=== PATIENT | male | born 1970 | race Caucasian/White ===

== ENCOUNTER 2022-07-07 16:00 | Outpatient (RCR) | payer OTHER, SELFPAY | END 2022-07-14 12:14 | disposition home or self-care (01) | PROVIDERS: PCP Family Medicine; Visit Provider Surgery | DX: R29.898 Other symptoms and signs involving the musculoskeletal system (principal); Z51.89 Encounter for other specified aftercare | CPT/HCPCS: 97110; 97140; 97162 ==

== ENCOUNTER 2025-01-26 08:23 | Emergency (ER) | payer OTHER, SELFPAY ==
[2025-01-26 08:29] VITALS: BP 145/88; PULSE 72; RESP 18; TEMP 36.9; O2SAT 99; BMI 28.4
--- NOTE | 2025-01-26 08:54 | CRLHL7_ITS ---
For Patients: As a result of the Century Cures Act, medical imaging exams and procedure reports are released immediately into your electronic medical record. You may view this report before your referring provider. If you have questions, please contact your health care provider. INDICATION: Chest pain TECHNIQUE: Chest 1 view. COMPARISON: None FINDINGS: Cardiovascular and mediastinum: Heart size and vasculature are normal in caliber and appearance. Mediastinum is within normal limits. Lungs and pleural space: Lungs are clear. No sign of infiltrate or mass. No sign of pleural effusion. No pneumothorax. Bones and soft tissues: No significant findings. IMPRESSION: Unremarkable chest. Dictated by: Baltazar Warner MD @ 01/26/2025 09:57:31 (Electronically Signed)
--- NOTE | 2025-01-26 08:55 | ED.CHESTPAIN ---
HPI - Chest Pain General Chief Complaint: Chest Pain Stated Complaint: chest pain Time Seen by Provider: 01/26/25 08:49 History of Present Illness HPI narrative: Patient is a 54-year-old gentleman who comes in today with intermittent chest pain for last week. 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 He was having reproducible chest pain over the last week but today is having pain without any activity. The pain is in the sternum with no radiation. No fevers no chills no night sweats no cough no shortness of breath. Patient is otherwise feeling fine. No previous history of cardiac disease but does have hyperlipidemia. Related Data Home Medications ?Medication ?Instructions ?Recorded ?Confirmed No Known Home Medications 01/26/25 01/26/25 Allergies Allergy/AdvReac Type Severity Reaction Status Date / Time No Known Drug Allergies Allergy Verified 01/26/25 08:34 Review of Systems Status of ROS Reports: 10 or more systems reviewed and unremarkable except as noted in History and below Exam Const Vital Signs, click to edit/add: Vital Signs - 24 hr 01/26/25 08:29 Temperature 98.4 F Pulse Rate [Right Pulse Oximeter] 72 Respiratory Rate 18 Blood Pressure [Right Upper Arm] 145/88 H Pulse Oximetry 99 Oxygen Delivery Method Room Air Course Vital Signs Vital signs: Initial Vital Signs Temperature 98.4 F 01/26/25 08:29 Temperature Source Temporal Artery Scan 01/26/25 08:29 Pulse Rate 72 01/26/25 08:29 Pulse Rhythm Regular 01/26/25 08:29 Pulse Strength 3+ Normal 01/26/25 08:29 Respiratory Rate 18 01/26/25 08:29 Blood Pressure 145/88 H 01/26/25 08:29 Blood Pressure Mean 107 H 01/26/25 08:29 Blood Pressure Position Sitting 01/26/25 08:29 Pulse Oximetry 99 01/26/25 08:29 Oxygen Delivery Method Room Air 01/26/25 08:29 Vital Signs Temperature 98.4 F 01/26/25 08:29 Pulse Rate 72 01/26/25 08:29 Respiratory Rate 18 01/26/25 08:29 Blood Pressure 145/88 H 01/26/25 08:29 Pulse Oximetry 99 01/26/25 08:29 Oxygen Delivery Method Room Air 01/26/25 08:29 Temperature 98.4 F 01/26/25 08:29 Pulse Rate 72 01/26/25 08:29 Respiratory Rate 18 01/26/25 08:29 Blood Pressure 145/88 H 01/26/25 08:29 Pulse Oximetry 99 01/26/25 08:29 Oxygen Delivery Method Room Air 01/26/25 08:29 MDM - Chest Pain MDM Narrative Medical decision making narrative: Patient presents with chest pain last week duration. EKG shows normal sinus rhythm without acute ST or T-wave changes no Q-waves. Troponin is negative D-dimer negative laboratory studies in general including CBC and comprehensive metabolic panel are normal. Chest x-ray negative upon my review. This time I did offer reassurance. He will contact his doctor tomorrow schedule stress echocardiogram. He will return if symptoms worsen. Lab Data Labs: Lab Results 01/26/25 Range/Units 09:05 WBC 5.72 (4.50-11.00) K/uL RBC 4.99 (4.30-5.90) m/uL Hgb 15.1 (13.5-17.5) gm/dL Hct 44.5 (37.0-53.0) % MCV 89 (80-100) fL MCH 30 (26-34) pg MCHC 34 (32-36) gm/dL RDW Coeff of Frances 13.0 (11.5-15.5) % Plt Count 284 (140-440) K/uL Neut % (Auto) 54.5 (42.0-72.0) % Lymph % (Auto) 29.4 (20-44) % [place] % (Auto) 13.3 H (0.0-11.0) % Eos % (Auto) 2.3 (0.0-7.0) % Baso % (Auto) 0.3 (0.0-3.0) % Neut # (Auto) 3.12 (1.7-7.0) K/uL Lymph # (Auto) 1.68 (0.90-2.90) K/uL [place] # (Auto) 0.80 (0.00-0.90) K/UL Eos # (Auto) 0.13 (0.00-0.50) K/uL Baso # (Auto) 0.02 (0.00-0.30) K/uL Abs Immat Gran (auto) 0.01 (0.00-0.30) K/uL Imm/Tot Granulo (auto) 0.2 % D-Dimer Quant (PE/DVT) < 0.27 (0.00-0.50) ug/ml Sodium 136 (135-149) mmol/L Potassium 4.1 (3.6-5.1) mmol/L Chloride 104 (96-114) mmol/L Carbon Dioxide 26 (20-32) mmol/L Anion Gap 6 L (7-15) mEq/L BUN 17 (7-30) mg/dL Creatinine 0.9 (0.5-1.5) mg/dL Estimated Creat Clear 107.27 Estimated GFR 102 ml/min Glucose 102 (60-115) mg/dL Calcium 9.4 (8.4-10.6) mg/dL Total Bilirubin 0.7 (0.1-1.5) mg/dL AST 41 H (12-35) U/L ALT 35 (4-50) U/L Alkaline Phosphatase 79 (40-150) U/L Troponin I < 0.01 (0.01-0.04) ng/mL Total Protein 7.7 (6.0-8.3) g/dL Albumin 4.4 (3.3-5.0) g/dL Discharge Plan Discharge Clinical Impression: Chest pain Patient Disposition: Home, Self-Care Condition: Stable Instructions: Chest Pain (ED) Additional Instructions: Continue current diet and activity Contact your doctor tomorrow to discuss a stress test. Activity Level: No Restrictions Discharge Diet: Regular Prescriptions: No Action No Known Home Medications Follow Up/Referrals: Gary Shine MD [Referring, Family Practice] Stand Alone Forms: [employer] Info Instructions
--- OUTSIDE RECORDS SUMMARY | 2025-01-26 09:02 | XMS_ITS | Clinical Summary ---
Author Organization [facility] Address [address] [place] [id number] Care Team Providers Care Chimney Mechanic Name Role Phone Anson Green MD Primary Care Provider [phone] Allergies Active Allergy Reactions Criticality Noted Date Comments Unlisted Allergen (Include D etail In Comments) Runny Nose 11/20/2020 Hayfever Medications cetirizine (ZYRTEC) 10 mg tablet Take 1 tablet by mouth once daily. 0 0 Active tiZANidine (ZANAFLEX) 4 mg tabletIndication s:Acute midline low back pain without sciatica Take 1 Tablet (4 mg) by mouth every 6 hours if needed for Muscle Spasm. 10 Tablet 3 Active predniSONE (DELTASONE) 20 mg tabletIndication s:Pruritic rash 2 tab x 3 days, 1 tab x 3 days, 0.5 tab x 4 days 11 Tablet 4 Active sildenafiL, pulm.hypertensio n, (REVATIO) 20 mg tabletIndication s:Erectile dysfunction, unspecified erectile dysfunction type TAKE 2-5 TABLETS BY MOUTH 30 MINUTES PRIOR TO SEXUAL INTERCOURSE. START AT LOWER DOSE AND INCREASE IF NEEDED. 50 Tablet 3 5 Active Active Problems Problem Noted Date Diagnosed Date Hyperplastic colon polyp 12/21/2015 Overview (12/21/2015): Colonoscopy 11/2015 polyp repeat in 10 years Family history of malignant neoplasm of prostate 07/30/2012 Allergic rhinitis, cause unspecified 06/22/2010 Immunizations Immunization Administration Dates Next Due AMB Influenza, (Flumist) Bharati e Intranasal,LAIV4 (Flu Clinic Only) 05/24/2013 AMB Influenza, IIV4 PF (=>6 mos Flulaval,Fluzone Fluarix)(Flu Clinic Only) 06/18/2014 COVID-19 VACCINE SPIKEVAX (M ODERNA 50MCG/0.5ML) 12YO+ PFS 08/07/2023 COVID-19 vaccine (Moderna 100mcg/0.5mL) PF, MDV 10/01/2020,09/03/2020 Hepatitis B, Unspecified 02/11/1997 Influenza, IIV3 (Age >=3 years) 08/07/19 13,09/07/2011,07/28/2010,2009 Influenza, IIV4 08/07/2023,,04/12/2019,2016,04/27/2016,08/14/2015 Td (Age >=7 Years) 02/27/2003 Tdap 01/11/2012 Family History Medical History Relation Name Comments Good Health Brother 6 Good Health Brother 7 Good Health Brother 8 Good Health Brother 9 Good Health Brother 10 Cancer-prostate Father Cancer Maternal Grandfather pancrea s Cancer-prostate Maternal Uncle Good Health Mother Cancer-prostate Paternal Grandfather Good Health Son 2 Relation Name Status Comments Brother 1 Alive Brother 2 Alive Brother 3 Alive Brother 4 Alive Brother 5 Alive Brother 6 Brother 7 Brother 8 Brother 9 Brother 10 Father Alive Maternal Grandfather Maternal Uncle Mother Alive Paternal Grandfather Son 1 Alive Son 2 Social History Tobacco Use Types Packs/Day Years Used Date Smoking Tobacco: Former Cigars Q uit: 07/31/2007 Smokeless Tobacco: Former Chew Quit: 07/31/2007 Tobacco Cessation:Counseling Given: Not Answered Alcohol Use Standard Drinks/Week Comments Yes 2 (1 standard drink = 0.6 oz pur e alcohol) occassional PHQ-2 Answer Date Recorded PHQ-2 TOTAL SCORE 0 08/07/2023 Social Connections Answer Date Recorded Do you often feel lonely or isolated from those around you? 0 08/07/2023 Financial Resource Strain Answer Date R ecorded Difficulty of Paying Living Expenses 3 08/07/2023 Difficulty of Paying Living Expenses Not on file 08/07/2023 Food Insecurity Answer Date Recorded Do you worry your food will run out before you are able to buy more? 1 08/07/2023 Transportation Needs Answer Date Record ed Does lack of transportation keep you from medica l appointments? 1 08/07/2023 Does lack of transportation keep you from work, meetings or getting things that you need? 1 08/07/2023 Housing Stability Answer Date Recorded What is your housing situation today? 1 08/07/2023 Utilities Answer Date Recorded Do you have trouble paying f or utilities (for example, heat, electricity, water, phone)? 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 Not on file Not on file Obstetrics History Last Filed Vital Signs Vital Sign Reading Time Taken Comments Blood Pressure 108/72 08/07/2023 3:13 PM BILLET HEATER OPERATOR Pulse 71 08/07/2023 3:13 PM BILLET HEATER OPERATOR Temperature 36.4 C (97.6 F) 11/20/2020 10:16 AM CDT Respiratory Rate - - Oxygen Saturation 98% 08/07/2023 3:13 PM BILLET HEATER OPERATOR Inhaled Oxygen Concentration - - Weight 97.2 kg (214 lb 3.2 oz) 08/07/2023 3:13 P M BILLET HEATER OPERATOR Height 183.6 cm (6' 0.28) 08/07/2023 3:13 PM CS T Body Mass Index 28.82 08/07/2023 3:13 PM BILLET HEATER OPERATOR Plan of Treatment Health Maintenance Due Date Last Done Comments Hepatitis B series for 19+ ( 2 of 3 - 19+ 3-dose series) 03/11/1997 02/11/1997 Pneumococcal series for age 50+ (1 of 1 - PCV) 2021 Zoster (shingles) series for age 50+ (1 of 2) 2021 Tetanus booster 01/10/2022 01/11/2012, 02/27/2003 COVID-19 vaccine series ( season) 2024 08/07/2023, 10/01/2020, 09/03/2020 BMI (ht and wt on same day) for age 18+ 08/07/2024 08/07/2023, 03/29/2022, 11/20/2020, Additional history exists Depression screening for age 12+ 08/11/2024 08/11/2023, 08/07/2023, 11/20/2020, Additional history exists Influenza Vaccine (Season Ended) 2025 08/07/2023, 08/28/2020, 04/12/2019, Additional history exists Colonoscopy through age 75 12/17/2025 12/18/2015 Lipids for age 45-75 08/07/2028 08/07/2023, 03/29/2022, 09/23/2019, Additional history exists Tdap Completed 01/11/2012 Hepatitis C screening for ag e 18-79 Completed 03/29/2022 HIV for age 15-65 Completed 08/07/2023 Procedures Procedure Name Priority Date/Time Associated Diagnosis Comments ANTI HIV 1/2 Routine 08/07/2023 4:12 PM BILLET HEATER OPERATOR Screening for HIV (human immunodeficiency virus) LIPID PANEL Routine 08/07/2023 4:12 PM BILLET HEATER OPERATOR Screening, lipid ANTI HCV Routine 03/29/2022 9:06 AM CDT Need for hepatitis C screening test from Last 3 Months or Most Recently Relevant to Health Maintenance Results * ANTI HIV 1/2 [94857.0] (08/07/2023 4:12 PM BILLET HEATER OPERATOR) HIV-1/HIV-2 SCREEN Non-Reacti ve Non-Reacti ve 08/08/2023 3:20 PM BILLET HEATER OPERATOR [facility] Comment:HIV-1 p24 and HIV-1/ HIV-2 Ab Not Detected. Blood BLOOD SPECIMEN / Unknown Venipuncture / Unknown 08/07/2023 4:12 PM BILLET HEATER OPERATOR 08/07/2023 4:13 PM BILLET HEATER OPERATOR us Anson Green MD SEND OUTS Final Resu lt [facility] [address] [place] [address], * (ABNORMAL) LIPID PANEL (08/07/2023 4:12 PM BILLET HEATER OPERATOR) CHOLESTEROL,TOTAL 259(H) 100 - 199 mg/dL 08/08/2023 2:06 PM BILLET HEATER OPERATOR [facility] Comment: Cholesterol, Total Reference Ranges Desirable <200 mg/dL Borderline 200-239 mg/dL High >=240 mg/dL TRIGLYCERIDES 189(H) <150 mg/dL 08/08/2023 2:06 PM BILLET HEATER OPERATOR [facility] HDL CHOLESTEROL 73 >40 mg/dL 2:06 PM BILLET HEATER OPERATOR [facility] NON-HDL CHOLESTEROL 186(H) <145 mg/dl 08/08/2023 2:06 PM BILLET HEATER OPERATOR [facility] CHOL/HDL RATIO 3.55 <4.50 08/08/2023 2:06 PM BILLET HEATER OPERATOR [facility] LDL CHOLESTEROL 148(H) <=130 mg/dL 08/08/2023 2:06 PM BILLET HEATER OPERATOR [facility] VLDL CHOLESTEROL 38(H) <=30 mg/dL 08/08/2023 2:06 PM BILLET HEATER OPERATOR [facility] PROVIDER ORDERED STATUS RANDOM 08/08/2023 2:06 PM BILLET HEATER OPERATOR [facility] Blood BLOOD SPECIMEN / Unknown Venipuncture / Unknown 08/07/2023 4:12 PM BILLET HEATER OPERATOR 08/07/2023 4:13 PM BILLET HEATER OPERATOR Anson Green MD CHEMISTRY Final Resu lt [facility] [address] [place] [address], * ANTI HCV (03/29/2022 9:06 AM CDT) HEPATITIS C ANTIBODY Non-React jaqueline Non-React jaqueline 03/30/2022 3:06 AM CDT [facility] Comment:Antibodies to HCV no t detected; does not exclude the possibility of exposure to HCV. Blood BLOOD SPECIMEN / Unknown Venipuncture / Unknown 03/29/2022 9:06 AM CDT 03/29/2022 2:34 PM CDT us Anson Green MD SEND OUTS Final Resu lt [facility] [address] [place] [address], [place] from Last 3 Months or Most Recently Relevant to Health Maintenance Insurance [employer] Care Teams Chimney Mechanic Relationship Specialty Start Date End Date Anson Green MD [address] [place] [address] PCP - General Family Practice 08/04/15
[2025-01-26 09:13] LABS: Basophils Absolute Auto 0.02 K/uL (0.00-0.30); Basophils Percent Auto 0.3 % (0.0-3.0); Eosinophils Absolute Auto 0.13 K/uL (0.00-0.50); Eosinophils Percent Auto 2.3 % (0.0-7.0); Hematocrit 44.5 % (37.0-53.0); Hemoglobin* 15.1 gm/dL (13.5-17.5); Immature Granulocytes Abs Auto 0.01 K/uL (0.00-0.30); Immature Granulocytes Pct Auto 0.2 %; Lymphocytes Absolute Auto 1.68 K/uL (0.90-2.90); Lymphocytes Percent Auto 29.4 % (20-44); Mean Corpuscular HGB Conc 34 gm/dL (32-36); Mean Corpuscular Hemoglobin 30 pg (26-34); Mean Corpuscular Volume 89 fL (80-100); Monocytes Percent Auto 13.3 % (0.0-11.0); Neutrophils Absolute Auto 3.12 K/uL (1.7-7.0); Neutrophils Percent Auto 54.5 % (42.0-72.0); Platelet Count* 284 K/uL (140-440); Red Blood Count 4.99 m/uL (4.30-5.90); White Blood Count* 5.72 K/uL (4.50-11.00)
[2025-01-26 09:15] LABS: Slide Review Reflex No
[2025-01-26 09:24] LABS: Albumin* 4.4 g/dL (3.3-5.0); Chloride* 104 mmol/L (96-114); Sodium* 136 mmol/L (135-149)
[2025-01-26 09:25] LABS: Potassium* 4.1 mmol/L (3.6-5.1)
[2025-01-26 09:27] LABS: Alanine Aminotransferase* 35 U/L (4-50); Anion Gap 6 mEq/L (7-15); Aspartate Amino Transferase* 41 U/L (12-35); Blood Urea Nitrogen* 17 mg/dL (7-30); Carbon Dioxide* 26 mmol/L (20-32); Creatinine* 0.9 mg/dL (0.5-1.5); Est. Creatinine Clearance* 107.27; Estimated Glomerular Filt Rate 102 ml/min
[2025-01-26 09:28] LABS: Alkaline Phosphatase* 79 U/L (40-150); Bilirubin Total* 0.7 mg/dL (0.1-1.5); Calcium* 9.4 mg/dL (8.4-10.6); Glucose* 102 mg/dL (60-115); Total Protein* 7.7 g/dL (6.0-8.3)
[2025-01-26 09:36] LABS: D Dimer Quantitative* < 0.27 ug/ml (0.00-0.50)
[2025-01-26 09:41] LABS: Troponin I* < 0.01 ng/mL (0.01-0.04)
== END 2025-01-26 10:34 | disposition home or self-care (01) ==
PROVIDERS: Emergency Provider Internal Medicine; PCP Surgery
DX: R07.9 Chest pain, unspecified (principal)
CPT/HCPCS: 36415; 71045; 80053; 84484; 85025; 85379; 99283; 99284